=== PATIENT | female | born 1965 | race African-American/Black ===

== ENCOUNTER 2017-04-07 12:35 | Observation (INO) | payer MEDICAID ==
[~2017-04-07] VITALS: Ht 149.9 cm; Wt 49.9 kg
[~2017-04-07 12:35] MED LIST: AMLO10TA4 PO; AMLO5TAB4 PO; CARV6.252 PO; LISI-334 PO; LOVA20TA2 PO; TRAZ50TA15 PO
--- NOTE | 2017-04-07 13:10 | EKG ---
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 PROLONGED QT RI6.01 Unconfirmed report Compared to ECG 05/19/2016 12:34:06 Prolonged QT interval now present Electronically Signed On 04-27-2017 16:56:15 CDT by Andrzej Kumar
[2017-04-07 13:26] LABS: BASO # 0.1 x10^3/uL (0.0-0.2); BASO % 1 % (0-3); EOS % 1 % (0-3); HEMATOCRIT 43.6 % (36.0-47.0); HEMOGLOBIN 14.6 g/dL (12.0-15.5); LYMPH # 3.1 x10^3/uL (1.0-4.8); LYMPH % 28 % (24-48); MEAN CORPUSCULAR HEMOGLOBIN 32 pg (25-35); MEAN CORPUSCULAR HGB CONC 34 g/dL (31-37); MEAN CORPUSCULAR VOLUME 97 fL (79-100); MONO % 8 % (0-9); NEUT % 62 % (31-73); PLATELET COUNT 244 x10^3/uL (140-400); RED BLOOD COUNT 4.52 x10^6/uL (3.50-5.40); RED CELL DISTRIBUTION WIDTH 13.3 % (11.5-14.5); WHITE BLOOD COUNT 11.3 x10^3/uL (4.0-11.0)
[2017-04-07 13:34] LABS: CALCIUM 9.4 mg/dL (8.5-10.1); CREATININE 0.7 mg/dL (0.6-1.0); GFR 106.3; POTASSIUM 3.2 mmol/L (3.5-5.1)
[2017-04-07 13:40] LABS: ALBUMIN 3.9 g/dL (3.4-5.0); DIRECT BILIRUBIN 0.2 mg/dL (0.0-0.2); TOTAL BILIRUBIN 0.7 mg/dL (0.2-1.0); TOTAL PROTEIN 8.1 g/dL (6.4-8.2)
--- NOTE | 2017-04-07 14:16 | RAD ---
Portable chest, 04/07/2017: History: Chest pain, anxiety The heart size and pulmonary vascularity are normal. No pulmonary infiltrates are seen. There is no evidence of pleural fluid. IMPRESSION: No acute cardiopulmonary abnormality is detected.
[2017-04-07 14:37] LABS: BILIRUBIN,URINE NEGATIVE (NEG); GLUCOSE,URINE NEGATIVE (NEG); NITRITE,URINE NEGATIVE (NEG); PROTEIN,URINE NEGATIVE (NEG-TRACE)
[2017-04-07 14:43] LABS: BACTERIA,URINE 0 /HPF (0-FEW); RBC,URINE 0 /HPF (0-2); SQUAMOUS EPITHELIAL CELL,UR FEW /LPF; WBC,URINE OCC /HPF (0-4)
[2017-04-07 15:15] LABS: BARBITURATES NEG (NEG); BENZODIAZEPINES NEG (NEG); CANNABINOIDS POS (NEG); COCAINE NEG (NEG); METHADONE NEG (NEG); OPIATES NEG (NEG); PHENCYCLIDINE NEG (NEG)
[2017-04-07] MEDS ORDERED: ONDANSETRON PF 4 MG/2 ML VIAL. IV PRN (16:00)
[2017-04-07] MEDS ORDERED: MORPHINE SULFATE 2 MG/ML DISP.SYRIN. IV PRN (16:00)
[2017-04-07 17:50] VITALS: BP 153/102
[2017-04-07] MEDS ORDERED: HYDR12.53 PO (17:54)
[2017-04-07] MEDS ORDERED: IBUP-1007 PO (17:54)
--- NOTE | 2017-04-07 17:55 | PHYS DOC ---
Past Medical History Past Medical History: Alcoholism, Arthritis, High Cholesterol, Hypertension, Other Additional Past Medical Histor: non-compliance Past Surgical History: Additional Past Surgical Histo: unknown Alcohol Use: Heavy Additional Information: Patient drinks alcohol every other day. Drug Use: Marijuana Social History Narrative: Marijuana daily. Adult General Chief Complaint Chief Complaint: CHEST PAIN HPI HPI 51-year-old female presenting to the emergency department today with chest pain this started around 11:30. She describes it as a tightness over her chest that is moderate and constant. It does not radiate and is not associated with shortness of breath. She denies fevers chills unilateral leg swelling hemoptysis or personal or family history of blood clotting disorders. She denies recent immobilization. She has a history of high cholesterol high blood pressure and a history of smoking. Review of systems is negative for fevers chills abdominal pain nausea vomiting or diaphoresis. All other review of systems is negative unless otherwise noted in history of present illness. ED course: 51-year-old female presenting to the emergency department today with chest tightness. Afebrile with a normal heart rate. Mildly hypertensive on initial triage vital signs. Saturating well on room air. EKG obtained and reviewed by myself shows sinus rhythm with a regular rate. ST segments are congruent. Chest x-ray obtained and reviewed by myself shows no obvious infiltrations or pneumothorax. Blood work obtained which showed a negative troponin. Otherwise nonspecific mild leukocytosis and mildly low potassium. Patient's ethanol was positive by urinalysis. Given the patient's risk factors and age she was admitted for chest pain rule out. Heart Score 4. Review of Systems Review of Systems SEE ABOVE. Allergies Allergies Allergies Coded Allergies Type Severity Reaction Last Updated Verified No Known Drug Allergies 06/06/14 No Physical Exam Physical Exam SEE ABOVE Constitutional: Well developed, well nourished, no acute distress, non-toxic appearance. [] HENT: Normocephalic, atraumatic, bilateral external ears normal, oropharynx moist, no oral exudates, nose normal. [] Eyes: PERRLA, EOMI, conjunctiva normal, no discharge. [] Neck: Normal range of motion, no tenderness, supple, no stridor. [] Cardiovascular:Heart rate regular rhythm, no murmur [] Lungs & Thorax: Bilateral breath sounds clear to auscultation [] Abdomen: Bowel sounds normal, soft, no tenderness, no masses, no pulsatile masses. [] Skin: Warm, dry, no erythema, no rash. [] Back: No tenderness, no CVA tenderness. [] Extremities: No tenderness, no cyanosis, no clubbing, ROM intact, no edema. [] Neurologic: Alert and oriented X 3, normal motor function, normal sensory function, no focal deficits noted. [] Psychologic: Affect normal, judgement normal, mood normal. [] Current Patient Data Vital Signs Vital Signs Date Time Temp Pulse Resp B/P (MAP) Pulse Ox O2 Delivery O2 Flow Rate FiO2 04/07/17 15:00 84 20 158/100 (119) 98 04/07/17 13:30 Room Air 04/07/17 12:45 97.8 97.8 Lab Values Laboratory Tests Test 04/07/17 13:10 04/07/17 14:25 White Blood Count 11.3 x10^3/uL (4.0-11.0) H Red Blood Count 4.52 x10^6/uL (3.50-5.40) Hemoglobin 14.6 g/dL (12.0-15.5) Hematocrit 43.6 % (36.0-47.0) Mean Corpuscular Volume 97 fL (79-100) Mean Corpuscular Hemoglobin 32 pg (25-35) Mean Corpuscular Hemoglobin Concent 34 g/dL (31-37) Red Cell Distribution Width 13.3 % (11.5-14.5) Platelet Count 244 x10^3/uL (140-400) Neutrophils (%) (Auto) 62 % (31-73) Lymphocytes (%) (Auto) 28 % (24-48) Monocytes (%) (Auto) 8 % (0-9) Eosinophils (%) (Auto) 1 % (0-3) Basophils (%) (Auto) 1 % (0-3) Neutrophils # (Auto) 7.0 x10^3uL (1.8-7.7) Lymphocytes # (Auto) 3.1 x10^3/uL (1.0-4.8) Monocytes # (Auto) 0.9 x10^3/uL (0.0-1.1) Eosinophils # (Auto) 0.1 x10^3/uL (0.0-0.7) Basophils # (Auto) 0.1 x10^3/uL (0.0-0.2) Sodium Level 143 mmol/L (136-145) Potassium Level 3.2 mmol/L (3.5-5.1) L Chloride Level 102 mmol/L (98-107) Carbon Dioxide Level 28 mmol/L (21-32) Anion Gap 13 (6-14) Blood Urea Nitrogen 10 mg/dL (7-20) Creatinine 0.7 mg/dL (0.6-1.0) Estimated GFR (Cockcroft-Gault) 106.3 Glucose Level 85 mg/dL (70-99) Calcium Level 9.4 mg/dL (8.5-10.1) Total Bilirubin 0.7 mg/dL (0.2-1.0) Direct Bilirubin 0.2 mg/dL (0.0-0.2) Aspartate Amino Transferase (AST) 43 U/L (15-37) H Alanine Aminotransferase (ALT) 46 U/L (14-59) Alkaline Phosphatase 56 U/L (46-116) Troponin I Quantitative < 0.017 ng/mL (0.000-0.055) BE-Mev-L-Type Natriuretic Peptide 69 pg/mL (0-124) Total Protein 8.1 g/dL (6.4-8.2) Albumin 3.9 g/dL (3.4-5.0) Lipase 236 U/L (73-393) Urine Collection Type Unknown Urine Color Yellow Urine Clarity Clear Urine pH 7.0 Urine Specific [place] 1.015 Urine Protein Negative mg/dL (NEG-TRACE) Urine Glucose (UA) Negative mg/dL (NEG) Urine Ketones (Stick) Negative mg/dL (NEG) Urine Blood Negative (NEG) Urine Nitrite Negative (NEG) Urine Bilirubin Negative (NEG) Urine Urobilinogen Dipstick 1.0 mg/dL (0.2 mg/dL) Urine Leukocyte Esterase Negative (NEG) Urine RBC 0 /HPF (0-2) Urine WBC Occ /HPF (0-4) Urine Squamous Epithelial Cells Few /LPF Urine Bacteria 0 /HPF (0-FEW) Urine Hyaline Casts Occasional /HPF Urine Mucus Mod /LPF Urine Opiates Screen Neg (NEG) Urine Methadone Screen Neg (NEG) Urine Barbiturates Neg (NEG) Urine Phencyclidine Screen Neg (NEG) Urine Amphetamine/Methamphetamine Neg (NEG) Urine Benzodiazepines Screen Neg (NEG) Urine Cocaine Screen Neg (NEG) Urine Cannabinoids Screen Pos (NEG) Urine Ethyl Alcohol Pos (NEG) Laboratory Tests 04/07/17 13:10 Laboratory Tests 04/07/17 13:10 EKG EKG [] Radiology/Procedures Radiology/Procedures [] Course & Med Decision Making Course & Med Decision Making Pertinent Labs and Imaging studies reviewed. (See chart for details) [] Dragon Disclaimer Dragon Disclaimer This electronic medical record was generated, in whole or in part, using a voice recognition dictation system. Departure Departure Impression: Primary Impression: Chest pain Disposition: ADMITTED INPATIENT Admitting Physician: Other (REUSCH) Condition: STABLE Referrals: LAMONT GUILLEN MD (PCP) SHANDA CHINO MD Apr 07, 2017 17:55
[2017-04-07] MEDS ORDERED: FLU VACC QS2017-18 (36MOS+)/PF 0.5 ML SYRINGE. VAX IM ONE (18:00)
[2017-04-07] MEDS ORDERED: INFLUENZA VAX SCREEN BY RX. MC ONE (18:00)
[2017-04-07 19:00] VITALS: BP 182/116
[2017-04-07] MEDS ORDERED: IBUPROFEN 400 MG TABLET. PO PRN (19:45)
[2017-04-07] MEDS ORDERED: methylPREDNISolone 4 MG TABLET. PO ONE (20:00)
--- NOTE | 2017-04-07 20:12 | HP ---
ADMIT DATE: 04/07/2017 CHIEF COMPLAINT: Chest pain. HISTORY OF PRESENT ILLNESS: The patient is a 51-year-old woman with past medical history of hypertension, hypercholesterolemia and alcohol use, who presented to the Emergency Room with 2-day history of mid sternal chest pain. She relates that this started essentially coincidental with cough that is battling in her chest, but nonproductive. She has some upper respiratory symptoms including stuffy nose and postnasal drip as well. She denies any fevers or any sick contacts, however. Pain is located just right to the mid sternum, worse with deep breath, but not with direct pressure. This waxes and wanes and can get up to 7 or 8/10 on the pain scale. She has tried to take some ibuprofen for this as she takes this for her arthritis, but she feels it did not help terribly much. In the Emergency Room, chest x-ray and labs were essentially unremarkable. She did have a tox screen positive for alcohol as well as cannabinoids. The patient is now admitted for further workup and rule out ACS. PAST MEDICAL HISTORY: Hypertension, hypercholesterolemia. FAMILY HISTORY: Hypertension, hypercholesterolemia, diabetes. SOCIAL HISTORY: Currently lives with her sister, does not smoke tobacco, but uses cannabis on a regular basis, also heavy alcohol use. ALLERGIES: No known drug allergies. HOME MEDICATIONS: Reconciled with MAR. REVIEW OF SYSTEMS: Positive as per HPI. She complains mainly of left fifth finger numbness and pain in her hand along the medial border. She actually has seen a vehicle upholsterer in [place], name escapes her not too long ago. Rest of organ system review, however, is negative. PHYSICAL EXAMINATION: VITAL SIGNS: From today show blood pressure of 153/102, heart rate of 95, respiratory rate at 20. She is afebrile. GENERAL: This is a petite, well-nourished 51-year-old woman, alert and oriented, no acute distress. HEENT: Shows no scleral icterus. Oral mucosa is pink and moist. Dentition is poor. NECK: Supple, without any lymphadenopathy. LUNGS: Have occasional wheeze with cough, which has upper airway rhonchi. HEART: Has regular rate and rhythm without any murmurs. ABDOMEN: Has positive bowel sounds, soft, nontender. EXTREMITIES: Show no edema. LABORATORY DATA: CBC with a WBC of 11.3, normal differential, hemoglobin at 14.6, platelets at 244. Chemistries with a BUN and creatinine of 10 and 0.7, potassium at 3.2, AST at 43, normal troponin. Urine is negative for infectious signs. Tox screen positive for cannabinoids and alcohol. IMAGING: Chest x-ray without any acute pulmonary findings. ASSESSMENT AND PLAN: The patient is a 51-year-old alcoholic with hypertension, hyperlipidemia, now presenting with substernal chest pain. My strong suspicion is that this is actually either costochondritis versus pleuritis related to her upper respiratory infection and cough. We will start her on a Medrol Dosepak and mucolytics. Nevertheless, will have to rule out heart etiology given her risk factors. Serial enzymes and EKGs will be obtained. Cardiac consult in a.m. The patient is a regular alcohol user and somewhat vague in the amount of alcohol she imbibes on a daily basis. We will have to monitor closely for withdrawal symptoms. CIWA prevention protocol will be instituted with Librium. Hypertension, the patient currently is not well controlled. We will monitor overnight. Her home medication of lisinopril may have to be increased. BETH VIDES MD DR: UR/nts JOB#: [id number] / [id number] [facility]
[2017-04-07] MEDS: CARVEDILOL 6.25 MG TABLET. PO SCH (20:38)
[2017-04-07] MEDS: chlordiazePOXIDE HCL 25 MG CAPSULE PO SCH (20:38)
[2017-04-07] MEDS ORDERED: traZODone 50 MG TABLET. PO SCH (21:00)
[2017-04-07] MEDS ORDERED: ATORVASTATIN CALCIUM 10 MG TABLET. PO SCH (21:00)
[2017-04-07 23:00] VITALS: BP 165/124
[2017-04-08] MEDS: chlordiazePOXIDE HCL 25 MG CAPSULE PO SCH ×3 (02:14→13:36)
[2017-04-08 03:00] VITALS: BP 129/90
[2017-04-08 06:25] LABS: BASO % 0 % (0-3); EOS % 0 % (0-3); HEMATOCRIT 46.1 % (36.0-47.0); HEMOGLOBIN 15.5 g/dL (12.0-15.5); LYMPH % 15 % (24-48); MEAN CORPUSCULAR HEMOGLOBIN 33 pg (25-35); MEAN CORPUSCULAR HGB CONC 34 g/dL (31-37); MEAN CORPUSCULAR VOLUME 97 fL (79-100); MONO % 2 % (0-9); NEUT % 83 % (31-73); PLATELET COUNT 232 x10^3/uL (140-400); RED BLOOD COUNT 4.78 x10^6/uL (3.50-5.40); RED CELL DISTRIBUTION WIDTH 13.5 % (11.5-14.5); WHITE BLOOD COUNT 6.8 x10^3/uL (4.0-11.0)
[2017-04-08 07:00] VITALS: BP 130/99
[2017-04-08 07:00] LABS: CALCIUM 9.5 mg/dL (8.5-10.1); CREATININE 0.7 mg/dL (0.6-1.0); GFR 106.3
[2017-04-08] MEDS ORDERED: PANTOPRAZOLE 40 MG TABLET.DR. PO SCH (07:30)
[2017-04-08] MEDS: CARVEDILOL 6.25 MG TABLET. PO SCH ×2 (08:35→16:28)
[2017-04-08] MEDS ORDERED: methylPREDNISolone 4 MG TABLET. PO SCH (09:00)
[2017-04-08] MEDS ORDERED: MULTIVITAMIN with MINERAL TABLET. PO SCH (09:00)
[2017-04-08] MEDS ORDERED: FOLIC ACID 1 MG TABLET. PO SCH (09:00)
[2017-04-08] MEDS ORDERED: THIAMINE IM 200 MG/2 ML VIAL. IM SCH (09:00)
[2017-04-08] MEDS ORDERED: hydroCHLOROthiazide 12.5 MG CAPSULE PO SCH (09:00)
[2017-04-08] MEDS ORDERED: LISINOPRIL 20 MG TABLET PO SCH (09:00)
--- NOTE | 2017-04-08 09:32 | PDOC2 ---
JASON SIMS FACILITY SECURITY OFFICER 04/08/17 0932: CARDIAC CONSULT DATE OF CONSULT Date of Consult DATE: 04/08/17 TIME: 09:31 REASON FOR CONSULT Reason for Consult: chest pain HISTORY OF PRESENT ILLNESS HISTORY OF PRESENT ILLNESS Ms Gonzalez is a 51 year old female with history of hypertension, hyperlipidemia and ETOH abuse who presents with complaints of upper right chest discomfort that began while under emotional stress. She reports pain increased with deep inspiration and cough. She denies any radiation. She says she has been having similar pain off and on for about 2 weeks. Not increased with exertion. She also reports progressive exertional fatigue over the last year. She says she becomes tired with walking about 50 feet and feels the need to rest. She denies any regular activity but does report the ability to walk a flight of stairs with only fatigue as symptom. She denies any palpitations, lightheadedness or syncope. She denies any congestive symptoms. PAST MEDICAL HISTORY Past Medical History Hypertension, hyperlipidemia PAST SURGICAL HISTORY Past Surgical History x 4, tubal ligation FAMILY HISTORY Family History hypertension, hyperlipidemia, diabetes SOCIAL HISTORY Social History No tobacco, daily marijuana use, daily ETOH CURRENT MEDICATIONS CURRENT MEDICATIONS Current Medications Medications (Trade) Dose Ordered Sig/Yen Route PRN Reason Start Time Stop Time Status Last Admin Dose Admin Carvedilol (Coreg) 6.25 mg BIDWMEALS PO 04/07/17 21:00 04/08/17 08:35 Hydrochlorothiazide (Microzide) 12.5 mg DAILY PO 04/08/17 09:00 04/08/17 08:35 Lisinopril (Prinivil) 20 mg DAILY PO 04/08/17 09:00 04/08/17 08:34 Trazodone HCl (Desyrel) 50 mg HS PO 04/07/17 21:00 04/07/17 20:38 Atorvastatin Calcium (Lipitor) 5 mg QHS PO 04/07/17 21:00 04/07/17 20:38 Methylprednisolone (Medrol) 20 mg 1X ONCE PO 04/07/17 20:00 04/07/17 20:01 DC 04/07/17 20:39 Methylprednisolone (Medrol) 16 mg DAILY PO 04/08/17 09:00 04/08/17 08:34 Pantoprazole Sodium (Protonix) 40 mg DAILYAC PO 04/08/17 07:30 04/08/17 08:34 Guaifenesin (Mucinex) 600 mg BID PO 04/07/17 21:00 04/08/17 08:34 Multivitamins (Thera M Plus) 1 tab DAILY PO 04/08/17 09:00 04/08/17 08:35 Folic Acid (Folic Acid) 1 mg DAILY PO 04/08/17 09:00 04/08/17 08:34 Thiamine HCl 100 mg DAILY IM 04/08/17 09:00 04/13/17 08:59 04/08/17 08:36 Chlordiazepoxide (Librium) 25 mg Q6H PO 04/07/17 20:00 04/09/17 02:01 04/08/17 08:35 ALLERGIES ALLERGIES: Coded Allergies: No Known Drug Allergies (Unverified , 06/06/14) ROS Review of System as per HPI or negative PHYSICAL EXAM General: Alert, Oriented X3, Cooperative, No acute distress HEENT: Atraumatic, EOMI Lungs: Clear to auscultation, Normal air movement Heart: Regular rate, Normal S1, Normal S2, Other (no gallops, clicks or rubs) Abdomen: Normal bowel sounds, Soft, No tenderness Extremities: No cyanosis, No edema, Normal pulses Psych/Mental Status: Mental status NL, Mood NL VITALS VITALS Vital Signs Date Time Temp Pulse Resp B/P (MAP) Pulse Ox O2 Delivery O2 Flow Rate FiO2 04/08/17 08:35 83 129/90 04/08/17 08:00 Room Air 04/08/17 07:00 96.3 20 100 96.3 LABS Lab: Laboratory Tests Test 04/07/17 13:10 04/07/17 14:25 04/08/17 04:41 White Blood Count 11.3 x10^3/uL (4.0-11.0) 6.8 x10^3/uL (4.0-11.0) Red Blood Count 4.52 x10^6/uL (3.50-5.40) 4.78 x10^6/uL (3.50-5.40) Hemoglobin 14.6 g/dL (12.0-15.5) 15.5 g/dL (12.0-15.5) Hematocrit 43.6 % (36.0-47.0) 46.1 % (36.0-47.0) Mean Corpuscular Volume 97 fL (79-100) 97 fL (79-100) Mean Corpuscular Hemoglobin 32 pg (25-35) 33 pg (25-35) Mean Corpuscular Hemoglobin Concent 34 g/dL (31-37) 34 g/dL (31-37) Red Cell Distribution Width 13.3 % (11.5-14.5) 13.5 % (11.5-14.5) Platelet Count 244 x10^3/uL (140-400) 232 x10^3/uL (140-400) Neutrophils (%) (Auto) 62 % (31-73) 83 % (31-73) Lymphocytes (%) (Auto) 28 % (24-48) 15 % (24-48) Monocytes (%) (Auto) 8 % (0-9) 2 % (0-9) Eosinophils (%) (Auto) 1 % (0-3) 0 % (0-3) Basophils (%) (Auto) 1 % (0-3) 0 % (0-3) Neutrophils # (Auto) 7.0 x10^3uL (1.8-7.7) 5.6 x10^3uL (1.8-7.7) Lymphocytes # (Auto) 3.1 x10^3/uL (1.0-4.8) 1.0 x10^3/uL (1.0-4.8) Monocytes # (Auto) 0.9 x10^3/uL (0.0-1.1) 0.1 x10^3/uL (0.0-1.1) Eosinophils # (Auto) 0.1 x10^3/uL (0.0-0.7) 0.0 x10^3/uL (0.0-0.7) Basophils # (Auto) 0.1 x10^3/uL (0.0-0.2) 0.0 x10^3/uL (0.0-0.2) Sodium Level 143 mmol/L (136-145) 139 mmol/L (136-145) Potassium Level 3.2 mmol/L (3.5-5.1) 4.0 mmol/L (3.5-5.1) Chloride Level 102 mmol/L (98-107) 100 mmol/L (98-107) Carbon Dioxide Level 28 mmol/L (21-32) 30 mmol/L (21-32) Anion Gap 13 (6-14) 9 (6-14) Blood Urea Nitrogen 10 mg/dL (7-20) 10 mg/dL (7-20) Creatinine 0.7 mg/dL (0.6-1.0) 0.7 mg/dL (0.6-1.0) Estimated GFR (Cockcroft-Gault) 106.3 106.3 Glucose Level 85 mg/dL (70-99) 134 mg/dL (70-99) Calcium Level 9.4 mg/dL (8.5-10.1) 9.5 mg/dL (8.5-10.1) Total Bilirubin 0.7 mg/dL (0.2-1.0) Direct Bilirubin 0.2 mg/dL (0.0-0.2) Aspartate Amino Transf (AST/SGOT) 43 U/L (15-37) Alanine Aminotransferase (ALT/SGPT) 46 U/L (14-59) Alkaline Phosphatase 56 U/L (46-116) Troponin I Quantitative < 0.017 ng/mL (0.000-0.055) < 0.017 ng/mL (0.000-0.055) RZ-Ent-V-Type Natriuretic Peptide 69 pg/mL (0-124) Total Protein 8.1 g/dL (6.4-8.2) Albumin 3.9 g/dL (3.4-5.0) Lipase 236 U/L (73-393) Urine Collection Type Unknown Urine Color Yellow Urine Clarity Clear Urine pH 7.0 Urine Specific [place] 1.015 Urine Protein Negative mg/dL (NEG-TRACE) Urine Glucose (UA) Negative mg/dL (NEG) Urine Ketones (Stick) Negative mg/dL (NEG) Urine Blood Negative (NEG) Urine Nitrite Negative (NEG) Urine Bilirubin Negative (NEG) Urine Urobilinogen Dipstick 1.0 mg/dL (0.2 mg/dL) Urine Leukocyte Esterase Negative (NEG) Urine RBC 0 /HPF (0-2) Urine WBC Occ /HPF (0-4) Urine Squamous Epithelial Cells Few /LPF Urine Bacteria 0 /HPF (0-FEW) Urine Hyaline Casts Occasional /HPF Urine Mucus Mod /LPF Urine Opiates Screen Neg (NEG) Urine Methadone Screen Neg (NEG) Urine Barbiturates Neg (NEG) Urine Phencyclidine Screen Neg (NEG) Urine Amphetamine/Methamphetamine Neg (NEG) Urine Benzodiazepines Screen Neg (NEG) Urine Cocaine Screen Neg (NEG) Urine Cannabinoids Screen Pos (NEG) Urine Ethyl Alcohol Pos (NEG) IMAGES IMAGES CXR - no acute abn EKG EKG sinus rhythm with non specific changes ASSESSMENT/PLAN ASSESSMENT/PLAN 1. Chest pain, atypical - OK ruled out however given her risk factors and history of progressive exertional fatigue would suggest MPI to rule out ischemia. 2. hypertension - resume home meds 3. hyperlipidemia - check lipids, continue statin 4. ETOH/substance abuse - cessation encouraged 5. hypokalemia - resolved Problems: BOBBY SANCHEZ MD 04/08/17 1830: CARDIAC CONSULT ALLERGIES ALLERGIES: Coded Allergies: No Known Drug Allergies (Unverified , 06/06/14) JASON SIMS APRN Apr 08, 2017 09:32 BOBBY SANCHEZ MD Apr 08, 2017 18:30
[2017-04-08] MEDS ORDERED: REGADENOSON 0.4 MG/5 ML DISP.SYRIN. IV ONE (10:15)
[2017-04-08] MEDS ORDERED: ALBUTEROL SULFATE 2.5 MG/3 ML NEBU. NEB ONE (10:45)
[2017-04-08 10:47] VITALS: BP 138/105
[2017-04-08 15:00] VITALS: BP 126/90
--- NOTE | 2017-04-08 15:25 | PDOC ---
PROGRESS NOTES Chief Complaint Chief Complaint Chest pain ASSESSMENT AND PLAN: 1. Chest pain: ACS ruled out with serial enzymes/EKG. appreciate cardiology input: MPI planned 2. Costochondritis: Medrol dose pack, mucolytics 3. HTN: borderline control. cont lisinopril, monitor 4. HLD: on statin 5. EtOH abuse: on librium W/D prevention regimen 6. Prophylaxis: PPI, lovenox History of Present Illness History of Present Illness feels fine, no ongonig CP or SOB. wants to go home Vitals Vitals Vital Signs Date Time Temp Pulse Resp B/P (MAP) Pulse Ox O2 Delivery O2 Flow Rate FiO2 04/08/17 10:47 96.6 81 20 138/105 (116) 97 Room Air 96.6 Physical Exam General: Alert, Oriented X3, Cooperative, No acute distress Heart: Regular rate Lungs: Clear Abdomen: Normal bowel sounds, Soft, No tenderness Extremities: No clubbing, No edema Skin: No rashes Labs LABS Laboratory Tests Test 04/08/17 04:41 04/08/17 13:40 White Blood Count 6.8 x10^3/uL (4.0-11.0) Red Blood Count 4.78 x10^6/uL (3.50-5.40) Hemoglobin 15.5 g/dL (12.0-15.5) Hematocrit 46.1 % (36.0-47.0) Mean Corpuscular Volume 97 fL (79-100) Mean Corpuscular Hemoglobin 33 pg (25-35) Mean Corpuscular Hemoglobin Concent 34 g/dL (31-37) Red Cell Distribution Width 13.5 % (11.5-14.5) Platelet Count 232 x10^3/uL (140-400) Neutrophils (%) (Auto) 83 % (31-73) Lymphocytes (%) (Auto) 15 % (24-48) Monocytes (%) (Auto) 2 % (0-9) Eosinophils (%) (Auto) 0 % (0-3) Basophils (%) (Auto) 0 % (0-3) Neutrophils # (Auto) 5.6 x10^3uL (1.8-7.7) Lymphocytes # (Auto) 1.0 x10^3/uL (1.0-4.8) Monocytes # (Auto) 0.1 x10^3/uL (0.0-1.1) Eosinophils # (Auto) 0.0 x10^3/uL (0.0-0.7) Basophils # (Auto) 0.0 x10^3/uL (0.0-0.2) Sodium Level 139 mmol/L (136-145) Potassium Level 4.0 mmol/L (3.5-5.1) Chloride Level 100 mmol/L (98-107) Carbon Dioxide Level 30 mmol/L (21-32) Anion Gap 9 (6-14) Blood Urea Nitrogen 10 mg/dL (7-20) Creatinine 0.7 mg/dL (0.6-1.0) Estimated GFR (Cockcroft-Gault) 106.3 Glucose Level 134 mg/dL (70-99) Calcium Level 9.5 mg/dL (8.5-10.1) Troponin I Quantitative < 0.017 ng/mL (0.000-0.055) < 0.017 ng/mL (0.000-0.055) BETH VIDES MD Apr 08, 2017 15:25
[2017-04-08] MEDS ORDERED: ENOXAPARIN 40 MG/0.4 ML SYRINGE. SQ SCH (16:00)
[2017-04-08 16:28] VITALS: BP 126/90
[2017-04-08] MEDS ORDERED: PANT40TA5 PO (16:42)
--- NOTE | 2017-04-08 17:11 | RAD ---
APPROVED REPORT Test Type: Pharmacological Stress Nurse/Tech: Jodi El R.N. Test Indications: c/p Cardiac History: high cholesterol, htn, smokes marajuana Medications: See Electronic Medical Record Medical History: See Electronic Medical Record Resting ECG: ST w/ slight elevation in lead II Resting Heart Rate: 102 bpm Resting Blood Pressure: 138/96mmHg Pretest Chest Pain: No chest pain Nurse/Tech Notes S1S2, lungs coarsely wheezy throughout and deminished as well- called Tequila PROFESSIONAL NURSING ASSISTANT and a breathing tr eatment was given to pt which decreased her coughing but lungs sounded mostly the same as pre- tx. Consent: The procedure was explained to the patient in lay terms. Informed consent was witnessed. Ghulam patricia was entered into [email or web address]. History and Stress Test performed by Jodi El R.N. Pharm. Details Pharmacologic stress testing was performed using 0.4mg per 5ml of regadenoson given intravenously ove r 7-10 seconds. Stress Symptoms SOB, slight queasy feeling and h/a POST EXERCISE Reason for Termination: Infusion complete Max HR: 132 bpm Max Blood Pressure: 144/103mmHg Blood Pressure response to exercise: Normal blood pressure response during stress. Heart Rate response to exercise: wnl Chest Pain: No. Arrhythmia: No. ST Change: No. slightly more elevation in lead II INTERPRETATION Stress EKG Conclusion: No evidence of stress induced EKG changes. Imaging Protocol IMAGE PROTOCOL: Stress only Rest: Stress: Viability: Radiopharm.Tc99m Sestamibi [id number] Img Date 04/08/2017 Inj-Img [id number]. Stress Admin Site: IV - Left ForearmAdministrator: TATI Cintron, ARRT (R)(N) STRESS DATA End Diast. Vol.59.0mlAv. Heart Rate89.0bpm End Syst. Vol.20.0mlCO Index BSA3.4L/min Myocardial Bpwo496.0gEject. Vrtjdztl01.0% Stress Rates Pk. Fill Rate4.01EDV/secLVtime Pk. Fill 191.55msec Pk. Empty Rate4.74ESV/secLVtime Pk. Vmvqz622.14msec 07/05 Pk. Fill0.72EDV/sec Stress Scores Regional WT1.00Summed WT10.00 Regional WM0.00Summed WM7.00 LV Perfusion Normal perfusion on stress images. Rest images not performed Wall Motion Normal wall motion. LV Perf. Quant 17 Seg. SSS0.00 Stress Defect Extent (% LAD)0.00Rest Defect Extent (% LAD)Rev. Defect Extent (% LAD)0.00 Stress Defect Extent (% LCX) 0.00Rest Defect Extent (% LCX)Rev. Defect Extent (% LCX)0.00 Stress Defect Extent (% RCA)0.00Rest Defect Extent (% RCA)Rev. Defect Extent (% RCA)0.00 Stress Defect Extent (% EMILY)0.00Rest Defect Extent (% EMILY)Rev. Defect Extent (% EMILY)0.00 Other Information Quality:Average Risk Assessment: Low Risk Conclusion 1. No evidence of EKG changes with stress testing. 2. Normal perfusion at stress. 3. Low risk study. 4. EF > 60%.
--- NOTE | 2017-04-10 16:13 | DS ---
DATE OF DISCHARGE: 04/08/2017 CHIEF COMPLAINT: Chest pain. HOSPITAL COURSE: The patient is a 51-year-old who presented with chest pain to the Emergency Room. Also, this was somewhat atypical and attributed to costochondritis, ACS was ruled out with serial EKGs and enzymes. Cardiology consult was obtained and an MRI was performed, which did not show any reversible areas of ischemia. She was treated with steroids and mucolytics for her costochondritis and cough. Home medications for hypertension, hyperlipidemia were continued. For alcohol abuse, she was started on Librium withdrawal prevention regimen without any problems. PHYSICAL EXAMINATION: VITAL SIGNS: Show a blood pressure of 138/105, heart rate of 81, respiratory rate of 20. She is afebrile. GENERAL: She is alert and oriented, no acute distress. LUNGS: Clear. HEART: Regular rate and rhythm. ABDOMEN: Has positive bowel sounds, soft, nontender. EXTREMITIES: Show no edema. DISCHARGE DIAGNOSES: Chest pain, costochondritis. DISCHARGE DISPOSITION: To home. DISCHARGE CONDITION: Improved. DISCHARGE MEDICATIONS: Please refer to MAR. DISCHARGE INSTRUCTIONS: The patient will follow up with PCP in 1-2 weeks. BETH VIDES MD DR: UR/nts JOB#: [id number] / [id number] LAMONT Garcia MD MTDD
--- NOTE | 2017-04-26 11:49 | RAD ---
APPROVED REPORT Test Type: Pharmacological Stress Nurse/Tech: Jodi El R.N. 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 Consent: The procedure was explained to the patient in lay terms. Informed consent was witnessed. Ghulam patricia was entered into [employer]. History and Stress Test performed by Jodi El R.N. Pharm. Details Pharmacologic stress testing was performed using 0.4mg per 5ml of regadenoson given intravenously ove r 7-10 seconds. Stress Symptoms SOB, slight queasy feeling and h/a. POST EXERCISE Reason for Termination: Infusion complete Max HR: 132 bpm Max Blood Pressure: 144/103mmHg Blood Pressure response to exercise: Normal blood pressure response during stress. Heart Rate response to exercise: wnl Chest Pain: No. Arrhythmia: No. ST Change: No. Slightly more elevation in lead II. INTERPRETATION Stress EKG Conclusion: No evidence of stress induced EKG changes. Imaging Protocol IMAGE PROTOCOL: Stress Only Rest: Stress: Viability: Radiopharm.Tc99m Sestamibi [id number] Img Date 04/08/2017 Inj-Img [id number]. Stress Admin Site: IV - Left ForearmAdministrator: Alejandra Porras, TATI, ARRT (R)(N) STRESS DATA End Diast. Vol.59.0mlAv. Heart Rate89.0bpm End Syst. Vol.20.0mlCO Index BSA3.4L/min Myocardial Hgfd537.0gEject. Adyzzinp65.0% Stress Rates Pk. Fill Rate4.01EDV/secLVtime Pk. Fill 191.55msec Pk. Empty Rate4.74ESV/secLVtime Pk. Fqlwt431.14msec 1/3 Pk. Fill0.72EDV/sec Stress Scores Regional WT1.00Summed WT10.00 Regional WM0.00Summed WM7.00 LV Perfusion Normal Perfusion on stress images. Rest images not performed. Wall Motion Normal wall motion. LV Perf. Quant 17 Seg. SSS0.00 Stress Defect Extent (% LAD)0.00Rest Defect Extent (% LAD)Rev. Defect Extent (% LAD)0.00 Stress Defect Extent (% LCX) 0.00Rest Defect Extent (% LCX)Rev. Defect Extent (% LCX)0.00 Stress Defect Extent (% RCA)0.00Rest Defect Extent (% RCA)Rev. Defect Extent (% RCA)0.00 Stress Defect Extent (% EMILY)0.00Rest Defect Extent (% EMILY)Rev. Defect Extent (% EMILY)0.00 Other Information Risk Assessment: Low Risk Conclusion 1. No evidence of EKG changes with stress testing. 2. Normal perfusion at stress. 3. Low risk study. 4. EF>60%.
== END 2017-04-08 17:30 | disposition home or self-care (01) ==
LOC: ER 12:35 → 5 NORTH 15:22
PROVIDERS: ADMIT Internal Medicine Hematology & Oncology; ATTEND Internal Medicine Hematology & Oncology
DX: M94.0 Chondrocostal junction syndrome [Tietze] (principal); I10 Essential (primary) hypertension; E78.5 Hyperlipidemia, unspecified; E78.00 Pure hypercholesterolemia, unspecified; F12.90 Cannabis use, unspecified, uncomplicated; D72.829 Elevated white blood cell count, unspecified; E87.6 Hypokalemia; M19.90 Unspecified osteoarthritis, unspecified site; Z87.891 Personal history of nicotine dependence; Z91.19 Patient's noncompliance with other medical treatment and regimen; Z83.3 Family history of diabetes mellitus; Z82.49 Family history of ischemic heart disease and other diseases of the circulatory system; Z23 Encounter for immunization
CPT/HCPCS: 36415; 71010; 78452; 80048; 80076; 80307; 81001; 83690; 83880; 84484; 85025; 90471; 90686; 93005; 93017; 94640; 96372; 99285; A9500; G0378; J1650; J2785; J7509; 96374; 96375; 96376; G0379; G0479